=== PATIENT | female | born 1990 | race Caucasian/White ===

== ENCOUNTER → 2016-06-16 | Outpatient (CLI) | payer OTHER | LOC: LAB 15:18 | PROVIDERS: ATTEND Family Medicine | DX: Z32.00 Encounter for pregnancy test, result unknown (principal) | CPT/HCPCS: 36415; 84703 ==

== ENCOUNTER → 2016-08-08 | Outpatient (CLI) | payer OTHER | LOC: LAB 08:29 | PROVIDERS: ATTEND Family Medicine | DX: Z32.00 Encounter for pregnancy test, result unknown (principal) | CPT/HCPCS: 36415; 84703 ==